=== PATIENT | male | born 1975 | race Caucasian/White ===

== ENCOUNTER 2019-08-04 08:17 | Emergency (ER) | payer BC ==
--- NOTE | 2019-08-04 08:39 | ED ---
Throat Pain/Nasal Congestion - HPI Summary HPI Summary: Patient is a 41 yo male who presents emergency department for ongoing dental pain times one month. Patient notes he has an appointment with [facility] in 2 weeks. Patient concerned with new facial swelling and difficulty swallowing. Pt. states he feels like there is a lump in his throat. No past medical history. Denies fever, vomiting, difficulty opening mouth. Symptoms are mild in severity. No current modifying factors. - History of Current Complaint Chief Complaint: EDDentalPain Time Seen by Provider: 08/04/19 08:38 Hx Obtained From: Patient - Allergies/Home Medications Allergies/Adverse Reactions: Allergies Allergy/AdvReac Type Severity Reaction Status Date / Time No Known Allergies Allergy Verified 08/04/19 08:22 PMH/Surg Hx/FS Hx/Imm Hx Previously Healthy: Yes Endocrine/Hematology History: Denies: Hx Diabetes, Hx Thyroid Disease Cardiovascular History: Denies: Hx Hypertension Respiratory History: Denies: Hx Asthma, Hx Chronic Obstructive Pulmonary Disease (COPD) GI History: Reports: Hx Gastroesophageal Reflux Disease - CONTROLLED WITH RX Denies: Hx Ulcer Sensory History: Denies: Hx Contacts or Glasses, Hx Hearing Aid Opthamlomology History: Denies: Hx Contacts or Glasses - Surgical History Surgery Procedure, Year, and Place: BILATERAL HERNIA [facility] 2013 Hx Anesthesia Reactions: No Infectious Disease History: No Infectious Disease History: Denies: Hx Clostridium Difficile, Hx Hepatitis, Hx Human Immunodeficiency Virus (HIV), Hx of Known/Suspected MRSA, Hx Shingles, Hx Tuberculosis, Hx Known/ Suspected VRE, Hx Known/Suspected VRSA, History Other Infectious Disease, Traveled Outside the [place] in Last 30 Days - Family History Known Family History: Positive: Cardiac Disease, Non-Contributory - Social History Occupation: Employed Full-time Lives: With Family Alcohol Use: Occasionally Substance Use Type: Reports: None Smoking Status (MU): Never Smoked Tobacco Review of Systems - ROS Summary Review of Systems Summary: Omeprazole CAP (NF) [Prilosec CAP* 20 MG] 20 mg PO DAILY 05/26/16 [History Confirmed 08/04/19] Constitutional: Negative Negative: Fever Positive: Dental Pain Gastrointestinal: Negative Neurological/Mental Status: Negative All Other Systems Reviewed And Are Negative: Yes Physical Exam Triage Information Reviewed: Yes Vital Signs On Initial Exam: Initial Vitals Temp Pulse Resp BP Pulse Ox 98.3 F 79 16 165/112 96 08/04/19 08:19 08/04/19 08:19 08/04/19 08:19 08/04/19 08:19 08/04/19 08:19 Vital Signs Reviewed: Yes Appearance: Positive: Well-Appearing - Pt. sitting on bed in NAD. Skin: Positive: Warm, Dry Head/Face: Positive: Normal Head/Face Inspection Eyes: Positive: Normal, EOMI ENT: Positive: TMs normal, Other - Moderate tonilar edema bilaterally. No erythema or excudates. Uvula midline. Dental: Positive: Other - Decay noted to last top molar on left. Pain noted to first top left molar. Gingiva erythematous. No drainable abscess. No facial edema. No swelling under tongue. No trismus or muffled voice. Neck: Positive: Supple, Nontender, No Lymphadenopathy Neurological: Positive: Normal, CN Intact II-III Psychiatric: Positive: Affect/Mood Appropriate Procedures - Sedation Patient Received Moderate/Deep Sedation with Procedure: No Diagnostics - Vital Signs Vital Signs Temp Pulse Resp BP Pulse Ox 08/04/19 08:19 98.3 F 79 16 165/112 96 - Laboratory Lab Statement: Any lab studies that have been ordered have been reviewed, and results considered in the medical decision making process. EENT Course/Dx - Course Course Of Treatment: Pt. with dental pain and dysphagia. Afebrile and well appearing. No signs of ludwigs. Will tx with pnc. To f.u with dentist as scheduled. To f.u with pcp if dysphagia continues. Tylenol or motrin for pain as directed. WIll return to er if sxs change or worsen. - Differential Diagnoses Differential Diagnoses: Dental Abscess, Dental Caries, Gingivitis - Diagnoses Provider Diagnoses: Dysphagia, Dentalgia Discharge ED - Sign-Out/Discharge Documenting (check all that apply): Patient Departure - Discharge Plan Condition: Good Disposition: HOME Prescriptions: Penicillin VK 500 MG TAB(NF) [Penicillin VK 500 mg Tab] 500 mg PO QID #40 tab Patient Education Materials: Toothache (ED), Dysphagia (ED) Referrals: Thanh Mcgovern MD [Primary Care Provider] - Additional Instructions: Follow up with dentist as scheduled Antibiotic as directed Tylenol or Motrin for pain as directed Follow up with PCP if pain/lump in throat continues Return to ER if symptoms change or worsen - Billing Disposition and Condition Condition: GOOD Disposition: Home - Attestation Statements Provider Attestation: I was available for consultation for this patient. I did not evaluate the patient or participate in any medical decision making or disposition decisions unless I am specifically named in the chart as having consulted on the patient. If I have consulted on the patient, please see my own ED note on the patient encounter. Anastasiia Naqvi MD
[2019-08-04 09:01] VITALS: BP 148/106
== END 2019-08-04 08:59 | disposition home or self-care (01) ==
LOC: ED 08:17
DX: K08.89 Other specified disorders of teeth and supporting structures (principal); R13.10 Dysphagia, unspecified; K21.9 Gastro-esophageal reflux disease without esophagitis; Z79.899 Other long term (current) drug therapy
CPT/HCPCS: 99282

== ENCOUNTER 2019-08-06 08:10 | Emergency (ER) | payer BC ==
[2019-08-06] MEDS ORDERED: Clindamycin 600 MG/D5W BAG(*) 600 MG/50 ML BAG IV ONE (08:50)
[2019-08-06 09:08] LABS: ABS Eosinophils 0.1 10^3/ul (0-0.6); ABS Lymphocytes 0.7 10^3/ul (1.0-4.8); ABS Monocytes 0.8 10^3/ul (0-0.8); ABS Neutrophils 4.7 10^3/ul (1.5-7.7); Eosinophil % 1.9 %; Hematocrit 42 % (42-52); Hemoglobin 14.9 g/dL (14.0-18.0); Lymphocyte % 11.6 %; Mean Corpuscular HGB Conc 36 g/dL (31-36); Mean Corpuscular Hemoglobin 32 pg (27-31); Mean Corpuscular Volume 91 fL (80-94); Mean Platelet Volume 7.4 fL (7.4-10.4); Platelet Count 196 10^3/uL (150-450); Red Blood Count 4.61 10^6 /uL (4.18-5.48); Red Cell Distribution Width 13 % (10-15); White Blood Count 6.4 10^3/uL (3.5-10.8)
[2019-08-06 09:19] LABS: Albumin 4.3 g/dL (3.2-5.2); Albumin/Globulin Ratio 1.3 (1-3); BUN/Creatinine Ratio 10.5 (8-20); C Reactive Protein 10.55 mg/L (<8.01); Calcium 8.9 mg/dL (8.6-10.3); EGFR African American 117.4 (>60); EGFR Non-African American 97.1 (>60); Globulin 3.3 g/dL (2-4); Potassium 3.8 mmol/L (3.5-5.0); Total Bilirubin 0.5 mg/dL (0.2-1.0); Total Protein 7.6 g/dL (6.4-8.9)
[2019-08-06] MEDS ORDERED: Ketorolac INJ* 30 MG/ML 1 ML VIAL IV ONE (09:34)
[2019-08-06 10:03] VITALS: BP 156/96
--- NOTE | 2019-08-06 11:06 | ED ---
Throat Pain/Nasal Congestion - HPI Summary HPI Summary: This patient is a 44-year-old otherwise healthy male presenting to the ED with left-sided facial pain. Symptoms have been present times approximately one month. He was seen in the ED 2 days ago. He was placed on penicillin and states since then his symptoms have been worsening. He denies any fevers, sweats, chills. He denies any difficulty talking, swallowing, eating or drinking. Symptoms are mild to moderate in severity. He states ibuprofen over- the-counter has not been improving symptoms. He is also endorsing some left- sided facial swelling which was not present x 2 days. - History of Current Complaint Chief Complaint: EDDentalPain Time Seen by Provider: 08/06/19 08:31 Hx Obtained From: Patient Onset/Duration: Sudden Onset Severity: Moderate Associated Signs And Symptoms: Positive: Negative - Epiglottits Risk Factors Epiglottis Risk Factors: Negative - Allergies/Home Medications Allergies/Adverse Reactions: Allergies Allergy/AdvReac Type Severity Reaction Status Date / Time No Known Allergies Allergy Verified 08/06/19 08:14 Home Medications: Home Medications Omeprazole CAP (NF) [Prilosec CAP* 20 MG] 20 mg PO DAILY 05/26/16 [History Confirmed 08/06/19] Penicillin VK 500 MG TAB(NF) [Penicillin VK 500 mg Tab] 500 mg PO QID #40 tab [Rx Confirmed 08/06/19] Clindamycin Cap(NF) [Clindamycin Cap 300 mg Cap(NF)] 300 mg PO Q6H #20 cap 08/06 [Rx] Ketorolac TAB * [Toradol TAB *] 10 mg PO Q6H #16 tab 08/06/19 [Rx] PMH/Surg Hx/FS Hx/Imm Hx Previously Healthy: Yes Endocrine/Hematology History: Denies: Hx Diabetes, Hx Thyroid Disease Cardiovascular History: Denies: Hx Hypertension Respiratory History: Denies: Hx Asthma, Hx Chronic Obstructive Pulmonary Disease (COPD) GI History: Reports: Hx Gastroesophageal Reflux Disease - CONTROLLED WITH RX Denies: Hx Ulcer Sensory History: Denies: Hx Contacts or Glasses, Hx Hearing Aid Opthamlomology History: Denies: Hx Contacts or Glasses - Surgical History Surgery Procedure, Year, and Place[place] [facility] [place]x Anesthesia Reactions: No - Immunization History Hx Pertussis Vaccination: No Immunizations Up to Date: Yes Infectious Disease History: No Infectious Disease History: Denies: Hx Clostridium Difficile, Hx Hepatitis, Hx Human Immunodeficiency Virus (HIV), Hx of Known/Suspected MRSA, Hx Shingles, Hx Tuberculosis, Hx Known/ Suspected VRE, Hx Known/Suspected VRSA, History Other Infectious Disease, Traveled Outside the [place] in Last 30 Days - Family History Known Family History: Positive: Cardiac Disease, Non-Contributory - Social History Occupation: Employed Full-time Lives: With Family Alcohol Use: Occasionally Hx Substance Use: No Substance Use Type: Reports: None Smoking Status (MU): Never Smoked Tobacco Review of Systems Negative: Fever, Chills, Fatigue, Skin Diaphoresis Positive: Dental Pain. Negative: Sore Throat Negative: Chest Pain Negative: Shortness Of Breath, Cough Genitourinary: Negative Positive: no symptoms reported, see HPI Negative: Arthralgia, Myalgia Skin: Negative All Other Systems Reviewed And Are Negative: Yes Physical Exam Triage Information Reviewed: Yes Vital Signs On Initial Exam: Initial Vitals Temp Pulse Resp BP Pulse Ox 97.9 F 70 16 174/94 97 08/06/19 08:12 08/06/19 08:12 08/06/19 08:12 08/06/19 08:12 08/06/19 08:12 Vital Signs Reviewed: Yes Appearance: Positive: Well-Appearing, No Pain Distress, Well-Nourished Skin: Positive: Warm, Skin Color Reflects Adequate Perfusion Head/Face: Positive: Normal Head/Face Inspection Eyes: Positive: EOMI, PETER, Conjunctiva Clear Neck: Positive: Supple, Nontender, No Lymphadenopathy Respiratory/Lung Sounds: Positive: Clear to Auscultation, Breath Sounds Present Cardiovascular: Positive: RRR, Pulses are Symmetrical in both Upper and Lower Extremities Musculoskeletal: Positive: Normal, Strength/ROM Intact Neurological: Positive: Normal, Sensory/Motor Intact, Speech Normal Psychiatric: Positive: Normal, Affect/Mood Appropriate Procedures - Sedation Patient Received Moderate/Deep Sedation with Procedure: No Diagnostics - Vital Signs Vital Signs Temp Pulse Resp BP Pulse Ox 08/06/19 10:01 98.2 F 67 16 156/96 96 08/06/19 09:40 65 163/98 96 08/06/19 09:10 61 159/82 96 08/06/19 09:00 64 94 08/06/19 08:41 74 97 08/06/19 08:40 74 163/103 97 08/06/19 08:12 97.9 F 70 16 174/94 97 - Laboratory Lab Results: Lab Results 08/06/19 08/06/19 Range/Units 08:53 08:53 WBC 6.4 (3.5-10.8) 10^3/uL RBC 4.61 (4.18-5.48) 10^6 /uL Hgb 14.9 (14.0-18.0) g/dL Hct 42 (42-52) % MCV 91 (80-94) fL MCH 32 H (27-31) pg MCHC 36 (31-36) g/dL RDW 13 (10-15) % Plt Count 196 (150-450) 10^3/uL MPV 7.4 (7.4-10.4) fL Neut % (Auto) 73.8 % Lymph % (Auto) 11.6 % [place] % (Auto) 12.0 % Eos % (Auto) 1.9 % Baso % (Auto) 0.7 % Absolute Neuts (auto) 4.7 (1.5-7.7) 10^3/ul Absolute Lymphs (auto) 0.7 L (1.0-4.8) 10^3/ul Absolute Monos (auto) 0.8 (0-0.8) 10^3/ul Absolute Eos (auto) 0.1 (0-0.6) 10^3/ul Absolute Basos (auto) 0.0 (0-0.2) 10^3/ul Absolute Nucleated RBC 0.0 10^3/ul Nucleated RBC % 0.0 Sodium 137 (135-145) mmol/L Potassium 3.8 (3.5-5.0) mmol/L Chloride 104 (101-111) mmol/L Carbon Dioxide 24 (22-32) mmol/L Anion Gap 9 (2-11) mmol/L BUN 9 (6-24) mg/dL Creatinine 0.86 (0.67-1.17) mg/dL Est GFR ( Amer) 117.4 (>60) Est GFR (Non-Af Amer) 97.1 (>60) BUN/Creatinine Ratio 10.5 (8-20) Glucose 113 H (70-100) mg/dL Calcium 8.9 (8.6-10.3) mg/dL Total Bilirubin 0.50 (0.2-1.0) mg/dL AST 17 (13-39) U/L ALT 20 (7-52) U/L Alkaline Phosphatase 81 (34-104) U/L C-Reactive Protein 10.55 H (<8.01) mg/L Total Protein 7.6 (6.4-8.9) g/dL Albumin 4.3 (3.2-5.2) g/dL Globulin 3.3 (2-4) g/dL Albumin/Globulin Ratio 1.3 (1-3) Result Diagrams: 08/06/19 08:53 08/06/19 08:53 Lab Statement: Any lab studies that have been ordered have been reviewed, and results considered in the medical decision making process. EENT Course/Dx - Course Course Of Treatment: This patient is evaluated for left-sided facial pain from a possible dental infection. Patient was seen in the ED 2 days ago with pain to the upper tooth, over tooth #13. No erythema or swelling to this area. He states despite being on penicillin 2 days and taking ibuprofen, his symptoms have not improved. He states he is feeling some slight swelling to the area. Physical examination there is no swelling around the eye to suggest a preseptal cellulitis. Patient is afebrile. No erythema to the skin. No trismus noted. No pharyngeal erythema or evidence of abscess. No erythema around the tooth of concern. On palpation, patient does have discomfort. It is unlikely he is feeling outpatient antibiotics and there is no evidence of worsening symptoms. Pt will be switched to Clindamycin, given 1 dose IV in the ED and given toradol. Pt feeling somewhat improved and will be dc'd home in good condition. - Differential Diagnoses Differential Diagnoses: Other - dental infection, swelling - Diagnoses Provider Diagnoses: Pain, dental Discharge ED - Sign-Out/Discharge Documenting (check all that apply): Patient Departure - Discharge Plan Condition: Stable Disposition: HOME Prescriptions: Clindamycin Cap(NF) [Clindamycin Cap 300 mg Cap(NF)] 300 mg PO Q6H #20 cap Ketorolac TAB * [Toradol TAB *] 10 mg PO Q6H #16 tab Patient Education Materials: Toothache (ED) Referrals: Thanh Mcgovern MD [Primary Care Provider] - Additional Instructions: No evidence of worsening infection Will switch your antibiotic to Clindamycin please take probiotics while taking this medication to avoid secondary infections Toradol four times daily x 4 days - DO NOT TAKE NSAIDS WHILE TAKING THIS MEDICATION You can take Tylenol 650mg four times daily in addition to taking the Toradol The pain may continue until you have the tooth pulled - Billing Disposition and Condition Condition: STABLE Disposition: Home
== END 2019-08-06 10:01 | disposition home or self-care (01) ==
LOC: ED 08:10
DX: K08.89 Other specified disorders of teeth and supporting structures (principal); K21.9 Gastro-esophageal reflux disease without esophagitis; Z79.899 Other long term (current) drug therapy
CPT/HCPCS: 36415; 80053; 85025; 86140; 96365; 96375; 99283; J1885

== ENCOUNTER 2019-08-07 09:28 | Emergency (ER) | payer BC ==
[2019-08-07] MEDS ORDERED: Ketorolac INJ* 30 MG/ML 1 ML VIAL IV ONE (10:15)
[2019-08-07] MEDS ORDERED: diPHENhydraMINE IV* 50 MG/ML 1 ml VIAL (BENADRYL) IV ONE (10:15)
[2019-08-07] MEDS ORDERED: NS 0.9% 1000 ML** 2,000 ML IV ONE (10:15)
[2019-08-07] MEDS ORDERED: Metoclopramide IV* 5 MG/ML 2 ML VIAL IV ONE (10:15)
[2019-08-07 10:33] LABS: ABS Basophils 0.1 10^3/ul (0-0.2); ABS Lymphocytes 0.6 10^3/ul (1.0-4.8); ABS Monocytes 0.7 10^3/ul (0-0.8); ABS Neutrophils 6.1 10^3/ul (1.5-7.7); Eosinophil % 0.4 %; Hematocrit 44 % (42-52); Hemoglobin 15.4 g/dL (14.0-18.0); Lymphocyte % 7.8 %; Mean Corpuscular HGB Conc 35 g/dL (31-36); Mean Corpuscular Hemoglobin 32 pg (27-31); Mean Corpuscular Volume 92 fL (80-94); Mean Platelet Volume 7.6 fL (7.4-10.4); Platelet Count 196 10^3/uL (150-450); Red Blood Count 4.82 10^6 /uL (4.18-5.48); Red Cell Distribution Width 13 % (10-15); White Blood Count 7.5 10^3/uL (3.5-10.8)
[2019-08-07 10:50] LABS: Albumin 4.3 g/dL (3.2-5.2); Albumin/Globulin Ratio 1.3 (1-3); BUN/Creatinine Ratio 13.3 (8-20); EGFR Non-African American 83.5 (>60); Globulin 3.3 g/dL (2-4); Total Bilirubin 0.6 mg/dL (0.2-1.0); Total Protein 7.6 g/dL (6.4-8.9)
[2019-08-07 11:46] LABS: Erythrocyte Sed Rate 26 mm/Hr (0-14)
--- NOTE | 2019-08-07 12:25 | ED ---
Throat Pain/Nasal Congestion - HPI Summary HPI Summary: This patient is a 44-year-old male who presents to the ED for the third time in 4 days. Patient states he was first placed on penicillin for a possible dental infection as he was having pain to the upper left tooth and cheek. He then returned yesterday as he was having continuing pain and now felt the area was swollen and radiating up just inferior to the eye. He believes after 2 days, since symptoms had been worsening, the antibiotic was not improving his symptoms. He was switched to clindamycin, labs were obtained yesterday and were WNL. He was given Toradol and discharged with dental infection. Overnight he started to vomit and had worse ORELLANA of life. Pt requesting CT scan d /t sxs. Vomiting x 3 overnight, worse after taking clindamycin. No diarrhea. No visual changes. States after vomiting he had some petechial hemorrhages to the L side of the face. - History of Current Complaint Chief Complaint: EDHeadache Time Seen by Provider: 08/07/19 09:52 Hx Obtained From: Patient Onset/Duration: Sudden Onset Associated Signs And Symptoms: Negative: Dysphagia, FB Sensation, Drooling, Wheezing - Epiglottits Risk Factors Epiglottis Risk Factors: Negative - Allergies/Home Medications Allergies/Adverse Reactions: Allergies Allergy/AdvReac Type Severity Reaction Status Date / Time No Known Allergies Allergy Verified 08/06/19 08:14 Home Medications: Home Medications Omeprazole CAP (NF) [Prilosec CAP* 20 MG] 20 mg PO DAILY 05/26/16 [History Confirmed 08/06/19] Penicillin VK 500 MG TAB(NF) [Penicillin VK 500 mg Tab] 500 mg PO QID #40 tab [Rx Confirmed 08/06/19] Clindamycin Cap(NF) [Clindamycin Cap 300 mg Cap(NF)] 300 mg PO Q6H #20 cap 08/06 [Rx] Ketorolac TAB * [Toradol TAB *] 10 mg PO Q6H #16 tab 08/06/19 [Rx] Amoxicillin/Clavulanate TAB* [Augmentin TAB 875*] 875 mg PO BID #10 tab [Rx] Ondansetron ODT TAB* [Zofran 4 MG Odt TAB*] 4 mg PO Q6H PRN #20 tab.odt MDD 4 [Rx] PMH/Surg Hx/FS Hx/Imm Hx Previously Healthy: Yes Endocrine/Hematology History: Denies: Hx Diabetes, Hx Thyroid Disease Cardiovascular History: Denies: Hx Hypertension Respiratory History: Denies: Hx Asthma, Hx Chronic Obstructive Pulmonary Disease (COPD) GI History: Reports: Hx Gastroesophageal Reflux Disease - CONTROLLED WITH RX Denies: Hx Ulcer Sensory History: Denies: Hx Contacts or Glasses, Hx Hearing Aid Opthamlomology History: Denies: Hx Contacts or Glasses - Surgical History Surgery Procedure, Year, and Place: BILATERAL HERNIA [facility] 2013 Hx Anesthesia Reactions: No - Immunization History Hx Pertussis Vaccination: No Immunizations Up to Date: Yes Infectious Disease History: No Infectious Disease History: Denies: Hx Clostridium Difficile, Hx Hepatitis, Hx Human Immunodeficiency Virus (HIV), Hx of Known/Suspected MRSA, Hx Shingles, Hx Tuberculosis, Hx Known/ Suspected VRE, Hx Known/Suspected VRSA, History Other Infectious Disease, Traveled Outside the [place] in Last 30 Days - Family History Known Family History: Positive: Cardiac Disease, Non-Contributory - Social History Occupation: Unemployed Lives: Alone Alcohol Use: Occasionally Hx Substance Use: No Substance Use Type: Reports: None Smoking Status (MU): Never Smoked Tobacco Review of Systems Negative: Fever, Chills, Fatigue, Skin Diaphoresis ENT: Other - sinus tenderness Positive: Dental Pain, Nasal Discharge. Negative: Sore Throat Negative: Palpitations, Chest Pain Negative: Shortness Of Breath, Cough Negative: Rash, Bruising Neurological/Mental Status: Negative Positive: Headache All Other Systems Reviewed And Are Negative: Yes Physical Exam Triage Information Reviewed: Yes Vital Signs On Initial Exam: Initial Vitals Temp Pulse Resp BP Pulse Ox 98.3 F 69 16 179/132 99 08/07/19 09:44 08/07/19 09:44 08/07/19 09:44 08/07/19 09:44 08/07/19 09:44 Vital Signs Reviewed: Yes Appearance: Positive: Well-Appearing, Well-Nourished Skin: Positive: Warm, Skin Color Reflects Adequate Perfusion Head/Face: Positive: Normal Head/Face Inspection Eyes: Positive: EOMI, Conjunctiva Clear ENT: Positive: Nasal drainage, Sinus tenderness. Negative: Pharyngeal erythema , Nasal congestion, Tonsillar swelling, Tonsillar exudate Neck: Positive: Supple, No Lymphadenopathy Respiratory/Lung Sounds: Positive: Clear to Auscultation, Breath Sounds Present Cardiovascular: Positive: RRR, Pulses are Symmetrical in both Upper and Lower Extremities Neurological: Positive: Sensory/Motor Intact, Alert, Oriented to Person Place, Time, Normal Gait, Speech Normal Psychiatric: Positive: Normal, Affect/Mood Appropriate Procedures - Sedation Patient Received Moderate/Deep Sedation with Procedure: No Diagnostics - Vital Signs Vital Signs Temp Pulse Resp BP Pulse Ox 08/07/19 11:38 74 159/93 97 08/07/19 11:08 63 167/100 96 08/07/19 11:05 71 95 08/07/19 10:38 67 99 08/07/19 10:37 67 168/93 99 08/07/19 09:44 98.3 F 69 16 179/132 99 - Laboratory Lab Results: Lab Results 08/07/19 08/07/19 08/07/19 Range/Units 10:26 10:26 10:26 WBC 7.5 (3.5-10.8) 10^3/uL RBC 4.82 (4.18-5.48) 10^6 /uL Hgb 15.4 (14.0-18.0) g/dL Hct 44 (42-52) % MCV 92 (80-94) fL MCH 32 H (27-31) pg MCHC 35 (31-36) g/dL RDW 13 (10-15) % Plt Count 196 (150-450) 10^3/uL MPV 7.6 (7.4-10.4) fL Neut % (Auto) 81.3 % Lymph % (Auto) 7.8 % [place] % (Auto) 9.8 % Eos % (Auto) 0.4 % Baso % (Auto) 0.7 % Absolute Neuts (auto) 6.1 (1.5-7.7) 10^3/ul Absolute Lymphs (auto) 0.6 L (1.0-4.8) 10^3/ul Absolute Monos (auto) 0.7 (0-0.8) 10^3/ul Absolute Eos (auto) 0.0 (0-0.6) 10^3/ul Absolute Basos (auto) 0.1 (0-0.2) 10^3/ul Absolute Nucleated RBC 0.0 10^3/ul Nucleated RBC % 0.0 ESR 26 H (0-14) mm/Hr Sodium 135 (135-145) mmol/L Potassium 4.0 (3.5-5.0) mmol/L Chloride 102 (101-111) mmol/L Carbon Dioxide 24 (22-32) mmol/L Anion Gap 9 (2-11) mmol/L BUN 13 (6-24) mg/dL Creatinine 0.98 (0.67-1.17) mg/dL Est GFR ( Amer) 101.0 (>60) Est GFR (Non-Af Amer) 83.5 (>60) BUN/Creatinine Ratio 13.3 (8-20) Glucose 128 H (70-100) mg/dL Lactic Acid 1.5 (0.5-2.0) mmol/L Calcium 9.0 (8.6-10.3) mg/dL Total Bilirubin 0.60 (0.2-1.0) mg/dL AST 17 (13-39) U/L ALT 19 (7-52) U/L Alkaline Phosphatase 77 (34-104) U/L Total Protein 7.6 (6.4-8.9) g/dL Albumin 4.3 (3.2-5.2) g/dL Globulin 3.3 (2-4) g/dL Albumin/Globulin Ratio 1.3 (1-3) Result Diagrams: 08/07/19 10:26 08/07/19 10:26 Lab Statement: Any lab studies that have been ordered have been reviewed, and results considered in the medical decision making process. EENT Course/Dx - Course Course Of Treatment: During his course treatment, the patient is evaluated for the third time left upper dental pain. He states this is more over his maxillary sinuses and extending upward into just above the eyes. Headache is worst of life. He is also having associated nausea and vomiting since last night. Symptoms began after taking the clindamycin for a dental infection. Labs are WNL. CT maxillofacial and CT brain WNL. Patient was given Toradol, Benadryl and Reglan. Pt sxs improved. He will DC clindamycin, take augmentin instead and is given zofran. - Differential Diagnoses Differential Diagnoses: Other - ORELLANA, dental pain, viral syndrome - Diagnoses Provider Diagnoses: Medication reaction, Sinusitis Discharge ED - Sign-Out/Discharge Documenting (check all that apply): Patient Departure - Discharge Plan Condition: Stable Disposition: HOME Prescriptions: Amoxicillin/Clavulanate TAB* [Augmentin TAB 875*] 875 mg PO BID #10 tab Ondansetron ODT TAB* [Zofran 4 MG Odt TAB*] 4 mg PO Q6H PRN #20 tab.odt MDD 4 PRN Reason: Nausea Patient Education Materials: Sinusitis (ED) Referrals: Thanh Mcgovern MD [Primary Care Provider] - Additional Instructions: Augmentin twice daily x 5 days Zofran as needed for nausea Benadryl, toradol and zofran for headache and nausea Drink plenty of fluids and rest - Billing Disposition and Condition Condition: STABLE Disposition: Home - Attestation Statements Provider Attestation: I was available for consult. This patient was seen by the SHERIE. The patient was not presented to, seen by, or examined by me. Colt Soto MD
[2019-08-07 12:30] VITALS: BP 163/96
== END 2019-08-07 12:30 | disposition home or self-care (01) ==
LOC: ED 09:28
DX: T50.905A Adverse effect of unspecified drugs, medicaments and biological substances, initial encounter (principal); K08.89 Other specified disorders of teeth and supporting structures; J32.9 Chronic sinusitis, unspecified; K21.9 Gastro-esophageal reflux disease without esophagitis; Z79.899 Other long term (current) drug therapy
CPT/HCPCS: 36415; 70450; 70486; 80053; 83605; 85025; 85652; 96374; 96375; 99283; J1200; J1885; J2765

== ENCOUNTER 2019-08-09 03:49 | Inpatient (IN) | payer BC ==
[2019-08-09] MEDS ORDERED: NS 0.9% 1000 ML** 2,000 ML IV ONE (04:11)
[2019-08-09] MEDS ORDERED: oxyCODONE/Acetamin 5/325 MG* TAB PO ONE (04:24)
[2019-08-09] MEDS ORDERED: Ondansetron INJ* 2 MG/ML VIAL IV ONE (04:26)
[2019-08-09] MEDS ORDERED: Tetracaine 0.5% OPTH.SOL 4 ML* 1 DROP BTL LEFT EYE ONE (04:30)
--- NOTE | 2019-08-09 04:33 | ED ---
Skin Complaint - HPI Summary HPI Summary: Patient is a 44 y/o M presenting to [facility] with rash to the left side of his face and involving his eye. The patient has been seen three times in the past week for persistent dental and facial pain. He had been prescribed antibiotics and had maxillofacial and brain CTs done that were negative. The patient was noted to have "peticheal hemorrhages to L side of forehead" on the triage note from the patient's most recent visit. Rash has significantly worsened since then. Patient notes difficulty opening his left eye and photophobia. N/V/D are reported, dental/facial pain is still present. He states that he has also been experiencing an elevated HR. Patient is on omeprazole for GERD. No other PMHx noted. Home medications and allergies are reviewed. Home Medications Medication Instructions Recorded Confirmed Type Omeprazole CAP (NF) [Prilosec CAP* 20 mg PO DAILY 05/26/16 08/09/19 History 20 MG] Ketorolac TAB * [Toradol TAB *] 10 mg PO Q6H #16 tab 08/06/19 08/09/19 Rx Amoxicillin/Clavulanate TAB* 875 mg PO BID #10 tab 08/07/19 08/09/19 Rx [Augmentin TAB 875*] Ondansetron ODT TAB* [Zofran 4 MG 4 mg PO Q6H PRN #20 tab.odt MDD 4 08/07/19 Rx Odt TAB*] - History of Current Complaint Stated Complaint: RAPID HR PER PT Hx Obtained From: Patient Onset/Duration: Started Days Ago, Still Present Skin Exposure Onset/Duration: Days Ago Timing: Constant Current Severity: Severe Pain Intensity: 10 Pain Scale Used: 0-10 Numeric Skin Location: Face Character: Pain, Redness, Painful Associated Signs & Symptoms: Nausea, Vomiting - Allergy/Home Medications Allergies/Adverse Reactions: Allergies Allergy/AdvReac Type Severity Reaction Status Date / Time No Known Allergies Allergy Verified 08/09/19 03:53 Home Medications: Home Medications Omeprazole CAP (NF) [Prilosec CAP* 20 MG] 20 mg PO DAILY 05/26/16 [History Confirmed 08/09/19] Ketorolac TAB * [Toradol TAB *] 10 mg PO Q6H #16 tab 08/06/19 [Rx Confirmed ] Amoxicillin/Clavulanate TAB* [Augmentin TAB 875*] 875 mg PO BID #10 tab [Rx Confirmed 08/09/19] Ondansetron ODT TAB* [Zofran 4 MG Odt TAB*] 4 mg PO Q6H PRN #20 tab.odt MDD 4 [Rx Confirmed 08/09/19] PMH/Surg Hx/FS Hx/Imm Hx Endocrine/Hematology History: Denies: Hx Diabetes, Hx Thyroid Disease Cardiovascular History: Denies: Hx Hypertension Respiratory History: Denies: Hx Asthma, Hx Chronic Obstructive Pulmonary Disease (COPD) GI History: Reports: Hx Gastroesophageal Reflux Disease - CONTROLLED WITH RX Denies: Hx Ulcer Sensory History: Denies: Hx Contacts or Glasses, Hx Hearing Aid Opthamlomology History: Denies: Hx Contacts or Glasses - Surgical History Surgery Procedure, Year, and Place: BILATERAL HERNIA [facility] 2013 Hx Anesthesia Reactions: No Infectious Disease History: No Infectious Disease History: Denies: Hx Clostridium Difficile, Hx Hepatitis, Hx Human Immunodeficiency Virus (HIV), Hx of Known/Suspected MRSA, Hx Shingles, Hx Tuberculosis, Hx Known/ Suspected VRE, Hx Known/Suspected VRSA, History Other Infectious Disease, Traveled Outside the [place] in Last 30 Days - Family History Known Family History: Positive: Cardiac Disease - Social History Alcohol Use: Occasionally Hx Substance Use: No Substance Use Type: Reports: None Smoking Status (MU): Never Smoked Tobacco Review of Systems Positive: Photophobia, Erythema, Other - patient keeps eye closed Positive: Dental Pain Positive: Other - elevated HR Positive: Vomiting, Diarrhea, Nausea Positive: Myalgia - facial pain Positive: Rash All Other Systems Reviewed And Are Negative: Yes Physical Exam - Summary Physical Exam Summary: Appearance: Well-appearing, Well-nourished, lying in bed comfortably Skin: Warm, dry, there is a dramatic herpes-zoster like rash involving the left forehead, cheek, nose, and eyelid Eyes: sclera anicteric, no conjunctival pallor; The left eye has conjunctival inflammation. The patient is apprehensive to light and does not want to open his left eye. HENT: mucous membranes moist, pharynx appears normal Neck: Supple, nontender Respiratory: Clear to auscultation, no signs of respiratory distress Cardiovascular: Normal S1, S2. No murmurs. Normal distal pulses in tibial and radial bilaterally. Abdomen: Soft, nontender, normal active bowel sounds present Musculoskeletal: Normal, Strength/ROM Intact Neurological: A&Ox3, awake and alert, mentation is normal, speech is fluent and appropriate Psychiatric: affect is normal, does not appear anxious or depressed Triage Information Reviewed: Yes Vital Signs On Initial Exam: Initial Vitals Temp Pulse Resp BP Pulse Ox 98.7 F 78 16 175/106 99 08/09/19 03:50 08/09/19 03:50 08/09/19 03:50 08/09/19 03:50 08/09/19 03:50 Vital Signs Reviewed: Yes Procedures - Sedation Patient Received Moderate/Deep Sedation with Procedure: No Diagnostics - Vital Signs Vital Signs Temp Pulse Resp BP Pulse Ox 08/09/19 03:50 98.7 F 78 16 175/106 99 - Laboratory Result Diagrams: 08/09/19 04:20 08/09/19 04:20 Lab Statement: Any lab studies that have been ordered have been reviewed, and results considered in the medical decision making process. Course/Dx - Course Course Of Treatment: Patient is a 44 y/o M presenting to [facility] with rash to the left side of his face and involving his eye. The patient has been seen three times in the past week for persistent dental and facial pain. He had been prescribed antibiotics and had maxillofacial and brain CTs done that were negative. The patient was noted to have "peticheal hemorrhages to L side of forehead" on the triage note from the patient's most recent visit. Rash has significantly worsened since then. Patient notes difficulty opening his left eye and photophobia. N/V/D are reported, dental/facial pain is still present. He states that he has also been experiencing an elevated HR. Patient is on omeprazole for GERD. No other PMHx noted. On physical exam, there is a dramatic herpes-zoster like rash involving the left forehead, cheek, nose, and eyelid. The left eye has conjunctival inflammation. The patient is apprehensive to light and does not want to open his left eye. Bloodwork was obtained and within normal limits with exception of glucose 117, chloride 96, sodium 130, absolute monos 1.1, absolute lymphs 0.9, MCH 32. Tetracaine droplets were applied to the left eye. Patient received fluids, Zofran 8 mg IV Perocect, 2 tabs. He was also started on Acyclovir. Patient's case was discussed with Dr. De La Torre, Dr. De La Torre accepts for admission. - Diagnoses Provider Diagnoses: Herpes zoster, Herpes zoster ophthalmicus of left eye - Physician Notifications Discussed Care Of Patient With: Ike De La Torre Time Discussed With Above Provider: 04:18 Instructed by Provider To: Other - Patient's case was discussed with Dr. De La Torre , Dr. De La Torre accepts for admission. Discharge ED - Sign-Out/Discharge Documenting (check all that apply): Patient Departure - admit All imaging exams completed and their final reports reviewed: No Studies - Discharge Plan Condition: Stable Disposition: ADMITTED TO [facility] - Attestation Statements Document Initiated by Scribe: Yes Documenting Scribe: ABDOULAYE DENISE Provider For Whom Scribe is Documenting (Include Credential): NATALIE ARNOLD MD Scribe Attestation: ABDOULAYE Hawkins, scribed for NATALIE ARNOLD MD on 08/09/19 at 0604.
[2019-08-09 04:37] LABS: Hematocrit 42 % (42-52); Hemoglobin 14.8 g/dL (14.0-18.0); Mean Corpuscular HGB Conc 35 g/dL (31-36); Mean Corpuscular Hemoglobin 32 pg (27-31); Mean Corpuscular Volume 91 fL (80-94); Mean Platelet Volume 7.6 fL (7.4-10.4); Platelet Count 183 10^3/uL (150-450); Red Blood Count 4.61 10^6 /uL (4.18-5.48); Red Cell Distribution Width 13 % (10-15); White Blood Count 8.6 10^3/uL (3.5-10.8)
[2019-08-09 04:48] LABS: Albumin 4.1 g/dL (3.2-5.2); Albumin/Globulin Ratio 1.2 (1-3); BUN/Creatinine Ratio 14.7 (8-20); EGFR African American 96.5 (>60); EGFR Non-African American 79.7 (>60); Globulin 3.3 g/dL (2-4); Potassium 3.7 mmol/L (3.5-5.0); Total Bilirubin 0.7 mg/dL (0.2-1.0); Total Protein 7.4 g/dL (6.4-8.9)
[2019-08-09 04:52] LABS: ABS Basophils 0.1 10^3/ul (0-0.2); ABS Lymphocytes 0.9 10^3/ul (1.0-4.8); ABS Monocytes 1.1 10^3/ul (0-0.8); ABS Neutrophils 6.5 10^3/ul (1.5-7.7); Eosinophil % 0.2 %; Lymphocyte % 10.3 %; Nucleated Red Blood Cells % 0.1
[2019-08-09] MEDS ORDERED: Acyclovir IV(*) 500 MG/10 ML 100 ML VIAL (500 MG) IVPB SCH ×2 (05:00→06:00)
[2019-08-09] MEDS: ACYCLOVIR IVPB SCH ×2 (05:10→12:45)
[2019-08-09] MEDS: NS 0.9% IVPB SCH ×2 (05:10→12:45)
[2019-08-09] MEDS ORDERED: traMADol TAB* 50 MG PO PRN (05:18)
[2019-08-09] MEDS ORDERED: Acetaminophen TAB* 325 MG PO PRN (05:18)
[2019-08-09 05:23] LABS: HIV 4th Generation Nonreactive (Nonreactive)
[2019-08-09] MEDS: ceFAZolin VIAL(*) 2 GM in NS 0.9% 100 ML* 100 ML IVPB SCH ×3 (08:11→22:18)
[2019-08-09] MEDS: Pantoprazole TAB * 40 MG TAB PO SCH (08:11)
--- NOTE | 2019-08-09 09:12 | HP ---
CC: Dr. Mcgovern * HISTORY AND PHYSICAL: DATE OF ADMISSION: 08/09/19 PRIMARY CARE PROVIDER: Dr. Mcgovern. ATTENDING PHYSICIAN WHILE IN THE HOSPITAL: Dr. De La Torre * (report being dictated by Luis Alfredo Arreguin NP). CHIEF COMPLAINT: 1. Rash. 2. Pain near left eye. HISTORY OF PRESENT ILLNESS: Mr. Mcmahon is a 44-year-old male patient who has been to the ER now, this is his fourth visit in about a week's time. He initially presented on 08/04/19 with complaints of having pain over the left mandible area just underneath the eye. It was thought that this could be possibly related to a dental process. He was noted to have poor dentition. He was evaluated in the ER. The patient was discharged with penicillin. He said despite this though he continued to have a significant amount of pain, sharp burning pain that would start again in the left mandible just below the left eye and radiate down the jaw and into his left ear. He says that the pain was becoming unbearable, so 2 days after that initial visit on 08/04/19, he came back on 08/06/19, again was evaluated. Despite having the penicillin, he was continuing to have left-sided facial swelling, which was not present 2 days ago. He was noted to have discomfort along the left eye. He was switched to clindamycin at that point. He came back again on 08/07/19, about 2 days after being put on clindamycin with complaints of vomiting, GI upset, not feeling well , and he was noted to have petechiae around the left eye thought to be secondary to the vomiting; however, he was continuing to have pain and swollen area around the left eye and they noted that the symptoms have been worsening and antibiotic had not been helping. The patient had CAT scans done at this visit. He was switched over to Augmentin. It was felt that he may have sinusitis. CTs were negative. He was given Toradol, Benadryl, and Reglan. His symptoms improved. He came back again tonight because he started developing a rash that started with blisters near the left eye. He noticed this happening Friday night and Friday that was getting worse and the pain was getting severe. He was vomiting. He was unable to keep much food down and was unable to sleep since because of all the pain. He came into the ER and actually nursing staff, who had seen him on previous visits, reported that he did not have this rash previously. He states that the rash started over the last 3 days. It started as blisters that developed into redness surrounding basically the left side of the forehead, around the left eye, and then the rash into the scalp with blistering noted. He denies any fevers. He does admit being nauseous and having a hard time keeping fluids down. He admits to having a burning, sharp, stabbing pain mostly on the left side of his face in the dermatomal distribution. He denies having any loss of vision. He says that it is hard to open his eye because of swelling and he does have pain with movement of the eye. There was concern given the fact that this is the fourth time he has come to the ER in less than a week, the fact that he is having nausea and vomiting, and given the fact that there is concern now for possible shingles, we were asked to evaluate for admission. He does admit to having a history of chickenpox as a child. PAST MEDICAL HISTORY: Significant for GERD. PAST SURGICAL HISTORY: Significant for hernia repair. HOME MEDICATIONS: He is taking currently now: 1. Zofran 4 mg every 6 hours as needed. 2. Prilosec 20 mg a day. 3. Toradol 10 mg every 6 hours. 4. Augmentin 875 p.o. b.i.d. The majority of those meds were prescribed at his last ER visit. ALLERGIES TO MEDICATIONS: Include no known drug allergies. FAMILY HISTORY: His mother had a history of stroke. His father is healthy. SOCIAL HISTORY: He does not smoke. He occasionally drinks alcohol, occasionally smokes marijuana. Surrogate decision maker is his . REVIEW OF SYSTEMS: There is no documented fever. He does admit to having chills. He denies having any significant weight change. There is no ear discharge. He denied having any rhinorrhea. No sore throat, no thyroid enlargement. Denies having any chest pain. There was no orthopnea. No nocturnal dyspnea. No abdominal pain. There was nausea. There was vomiting. No dysuria, no frequency, no seizure, no loss of consciousness, no pruritus, and no skin ulcerations. Review of 14 systems completed, all others were negative. PHYSICAL EXAMINATION GENERAL: At this time, Mr. Mcmahon is a 44-year-old male patient. He is sitting in the ED stretcher. He does not appear to be in any acute distress. He appears to be well nourished and well developed. VITAL SIGNS: Blood pressure 157/92, pulse 68, respirations 15, O2 saturation 97 %, temperature 98.7. HEENT: Head: Atraumatic. Eyes: His EOMs are intact. He does have pain with medial and lateral movement of the left eye. Pupils were equal and reactive. His conjunctiva was erythematic in the left eye. He did have some conjunctival hemorrhaging noted. The iris did not appear to be inflamed at this point. Visual acuity was intact as well. He does have some swelling noted over the lower lid and upper lid of his left eye and erythema surrounding that left eye. Tongue was midline. Throat: Oral mucosa appears to be moist. No oropharyngeal erythema. LUNGS: Clear to auscultation bilaterally. No wheezes, rales, or rhonchi. HEART: Sounds S1, S2. He had a regular rate and rhythm. No murmurs, rubs, or gallops. ABDOMEN: Soft, it was flat, nontender. Bowel sounds were present. EXTREMITIES: Pulses were 2+ throughout. He is moving all 4 extremities with 5/ 5 strength. NEUROLOGICAL: He is awake. He is alert. He is oriented x3. Speech clear. Tongue midline. Priming Powder Premix Blender were equal. Strength was preserved. SKIN: Again, he has an area of erythema surrounding the left eye and left forehead. He does have some blistering noted, particularly in the forehead. He does have some pustules noted to his upper shoulders bilaterally. The erythema surrounding the left eye. Again, he does have some versicles noted and he does state that prior to this, he did have blisters, but he does have a significant amount of erythema most of the left side of his face and it starts just below the left eye going up towards the forehead and then radiating back along his scalp not crossing over to the midline and it is painful. DIAGNOSTIC STUDIES/LAB DATA: Labs today reveal WBC 8.6, RBC 4.61, hemoglobin 14.8, hematocrit of 42, platelet count of 183. Sodium 130, potassium 3.7, chloride 96, bicarb 26, BUN 15, creatinine 1.02, glucose 117, calcium 9.0. Total bili 0.7, AST 16, ALT 18, alk phos 74. Albumin 4.1. ASSESSMENT AND PLAN: Mr. Mcmahon is a 44-year-old male patient coming into the ED today, this is the fourth time, with complaints of pain most notably to the left side of his face, now developing a rash. We are asked to evaluate for admission. He will be admitted under observation status for: 1. Shingles. I suspect that he does have shingles surrounding the left eye. His visual acuity is intact. I did touch base with Ophthalmology. Given the fact that he is in significant amount of pain and the fact that he has been nauseous and having a hard time keeping things down, I am going to admit him for IV therapy. I am hopeful that we can transition him quickly to p.o. and then have him continue his course as an outpatient. I will not start steroids just at this point. I would just do again IV acyclovir, Tylenol, and tramadol for pain. We will have Ophthalmology evaluate. I did place him on Keflex as I do have some concern that it could be a secondary bacterial infection. Just to be cautious, I would like to treat this with cefazolin 2 g IV every 8 hours for the time being, and we will continue to follow, and I will wait for the recommendations from Ophthalmology. I did discuss with them today. They will see him today. 2. Hyponatremia, etiology unclear. I will repeat this at noon today. He did receive IV fluids. If it is not improving, we could consider further workup in terms of FENa and plus or minus fluid restriction. 3. DVT prophylaxis. I have ordered SCDs. 4. Code status. Full code. 5. GERD. Continue PPI therapy. TIME SPENT: Time spent on the admission was 60 minutes, greater than half the time was spent [id number] with the patient obtaining my history of physical; the other half time was spent going over the plan of care with the patient and implementing plan of care. I did discuss the plan of care with my attending, Dr. De La Torre. LUIS ALFREDO ARREGUIN NP [id number]/[facility] #: [id number] [facility] HOSPITALRuma
[2019-08-09] MEDS ORDERED: oxyCODONE/Acetamin 5/325 MG* TAB PO PRN (12:23)
[2019-08-09] MEDS: Ondansetron TAB* 4 MG PO PRN ×2 (12:45→21:08)
[2019-08-09 13:59] LABS: BUN/Creatinine Ratio 14.9 (8-20); Calcium 8.5 mg/dL (8.6-10.3); EGFR African American 115.9 (>60); EGFR Non-African American 95.8 (>60); Potassium 3.6 mmol/L (3.5-5.0)
[2019-08-09] MEDS ORDERED: Docusate CAP* 100 MG PO PRN (14:33)
--- NOTE | 2019-08-09 17:03 | PN ---
Subjective Date of Service: 08/09/19 Interval History: Patient complained of pain on the face as well as eyes, especially severe pain on eye movement. He didn't manage to sleep due to pain. Review onset of illness, Face and jaw pain for 1 week, rashes since Friday, starting with small dots on forehead, and spreading to other parts of face. Objective Active Medications: Acetaminophen (Tylenol Tab*) 650 mg PO Q4H PRN PRN Reason: PAIN - MILD Last Admin: 08/09/19 15:50 Dose: 650 mg Docusate Sodium (Colace Cap*) 100 mg PO DAILY PRN PRN Reason: CONSTIPATION Acyclovir Sodium 800 mg/ (Sodium Chloride) 116 mls @ 116 mls/hr IVPB Q8H [facility] Last Admin: 08/09/19 12:45 Dose: 116 mls/hr Cefazolin Sodium 2 gm/ Sodium (Chloride) 100 mls @ 200 mls/hr IVPB Q8H [facility] Last Admin: 08/09/19 14:05 Dose: 200 mls/hr Ondansetron HCl (Zofran Tab*) 4 mg PO Q6H PRN PRN Reason: NAUSEA/VOMITING Last Admin: 08/09/19 12:45 Dose: 4 mg Oxycodone/Acetaminophen (Percocet 5/325 Tab*) 1 tab PO Q6H PRN PRN Reason: PAIN - MODERATE Last Admin: 08/09/19 12:45 Dose: 1 tab Pantoprazole Sodium (Protonix Tab*) 40 mg PO DAILY [facility] Last Admin: 08/09/19 08:11 Dose: 40 mg Vital Signs - 8 hr 08/09/19 08/09/19 08/09/19 09:46 12:14 12:17 Temperature 98.2 F Pulse Rate 70 Respiratory 18 18 18 Rate Blood Pressure 152/77 (mmHg) O2 Sat by Pulse 100 Oximetry 08/09/19 08/09/19 08/09/19 12:45 15:43 16:13 Temperature 99.6 F Pulse Rate 70 Respiratory 18 18 18 Rate Blood Pressure 152/79 (mmHg) O2 Sat by Pulse 99 Oximetry Oxygen Devices in Use Now: None Exam: Patient sitting on a bed with no acute distress Skin: Background papular rashes in dermatome distribution (nose, forehead, left eye), crusted vesicles seen on forehead, papular rashes seen on neck, whole back , some on chest, not involving mouth, external ear canals. HEENT: left eye swollen, unable to open, conjunctivitis in left eye seen, vision impaired in left eye. No rashes on ear and external canal, tympanic membrane intact. Lungs: clear with no added sounds Heart: S1/S2, no murmur. Abdomen: soft, nondistended and nontender. Neuro: Alert. oriented x 3. Cranial nerve intact, EOMI but significant pain. No meningeal sign. Reflexes wnl. Result Diagrams: 08/09/19 04:20 08/09/19 13:24 Assess/Plan/Problems-Billing Assessment: Jn Mcmahon is a 44 yr man presented with 1 week duration of facial pain, and 3 days duration of face rashes in dermatome distribution , as well as left eye pain and swelling, concerning for herpes zoster opthalmicus. He doesn't have any systemic medical problems and not immunocompromised. - Patient Problems (1) Herpes zoster with ophthalmic complication Current Visit: Yes Status: Acute Code(s): B02.30 - ZOSTER OCULAR DISEASE, UNSPECIFIED SNOMED Code(s): 788307152 Comment: - his rashes on the face is typical of herpes zoster in terms of onset, distribution, appearance. His rash on his back is papular and generalized , this could be related to viremia, will watch that. - concerning for herpes zoster opthalmicus - awaiting opthalmology consult today - iv acyclovir for now - no signs of disseminated herpes zoster so far, no involvement of ear, or brain - pain control with percocet - HIV neg, will check A1c tomorrow to see any underlying systemic disease (2) GERD (gastroesophageal reflux disease) Current Visit: Yes Status: Acute Code(s): K21.9 - GASTRO-ESOPHAGEAL REFLUX DISEASE WITHOUT ESOPHAGITIS SNOMED Code(s): 290338998 Comment: - on protonix (3) DVT prophylaxis Current Visit: Yes Status: Acute Code(s): Z29.9 - ENCOUNTER FOR PROPHYLACTIC MEASURES, UNSPECIFIED SNOMED Code(s): 358588272 Comment: ambulatory Status and Disposition: Inpatient Attestation Documenting Resident: Haylie Van Supervising Physician: Collin Hewitt Attending/Supervising Physician Comment: Agree with plan as outlined in note from today by Dr. Van unless indicated here. 44 yo M 1 week pain followed by facial rash in dermatomal distribution. There are more diffuse lesions on back that started 3 d [employer] when he developed N/V and is suspected from transient viremia. Now on acyclovir andpending ophtho eval this evening which has been verbally confirmed. Attestation: This service has been performed in part by a resident under the direction of a teaching physician.I, Collin Hewitt, performed the service, or was physically present during the critical, or bee portions of the service, furnished by the resident. I participated in the management of the patient.
--- NOTE | 2019-08-09 18:31 | CONSULT ---
Consult Consult: OPHTHALMOLOGY CONSULT CC: FACIAL RASH HPI: 44 YO male, with no significant ophthalmic hx presents with 1 week of left facial pain and new onset rash. currently admitted for herpes zoster. Pt reports continued left facial pain, left eye lid swelling. He reports, when left eyelid held opn, his vision appear unaffected. Exam: VA: OD: 20/40 sc. Os 204/40 sc Pupils: ERRL, no apd left eye EOMS: full ou IOP: 27 OS external: vesicles in V1 distribution on the left with 4+ eyelid edema on left EOMS: full ou Conjunctiva: w/q od. scattered ALEKSEY os cornea: clear ou, no pseudodendrites os AC: d/q ou Iris: flat/intact ou Lens: clear ou Vit: clear ou Dilated os Trop/phen 6:02pm optic nerve: tilted, s/p pink, 0.5 os macula: flat os Vasc: wnl os Periphery: flat os, no retinopathy A/P 1: Herpes zoster ophthalmicus, left sided -with elevated eye pressure. May be due to degree of swelling rather than trabeculitis but cannot differentiate now. -no keratopathy or retinopathy -rec continue acylovir IV until able to tolerate oral medication -rec starting Timolol 0.5% eye drops, twice a day to the left eye -rec starting prednisolone 1% eye drops , three times a day to the left eye -continue drops until able to be seen as an out patient. Rec follow up in clinic 1-3 days after discharge -follow up at [facility], [address], [place], [address]. Ph: [phone] Dinesh Borden MD
[2019-08-09] MEDS ORDERED: Acyclovir IV(*) 800 MG in NS 0.9% 250 ML* 250 ML IVPB SCH (18:42)
[2019-08-09] MEDS ORDERED: NS 0.9% 100 ML* 100 ML ONE (20:29)
[2019-08-09] MEDS: Acyclovir IV(*) 800 MG in NS 0.9% 250 ML* 250 ML IVPB SCH (20:40)
[2019-08-09] MEDS: oxyCODONE/Acetamin 5/325 MG* TAB PO PRN (21:08)
[2019-08-09] MEDS: diPHENhydraMINE PO* 25 MG PO PRN (22:17)
[2019-08-10] MEDS: Acyclovir IV(*) 800 MG in NS 0.9% 250 ML* 250 ML IVPB SCH ×3 (04:28→21:14)
[2019-08-10] MEDS: ceFAZolin VIAL(*) 2 GM in NS 0.9% 100 ML* 100 ML IVPB SCH ×2 (05:38→16:07)
[2019-08-10 06:29] LABS: INR 1.11 (0.82-1.09)
[2019-08-10 06:46] LABS: BUN/Creatinine Ratio 11.8 (8-20); Calcium 8.8 mg/dL (8.6-10.3); EGFR African American 107.3 (>60); EGFR Non-African American 88.7 (>60); Potassium 3.7 mmol/L (3.5-5.0)
[2019-08-10] MEDS: Pantoprazole TAB * 40 MG TAB PO SCH (09:32)
[2019-08-10] MEDS: oxyCODONE/Acetamin 5/325 MG* TAB PO PRN ×2 (09:33→20:42)
[2019-08-10] MEDS: prednisoLONE 1% OPHTH.SUSP* 5 ML OPHTH.SUSP LEFT EYE SCH ×4 (09:34→21:16)
[2019-08-10] MEDS: Timolol 0.5% OPTH.SOL* BTL LEFT EYE SCH ×2 (09:35→21:18)
[2019-08-10 16:15] LABS: ABS Basophils 0.1 10^3/ul (0-0.2); ABS Lymphocytes 1.4 10^3/ul (1.0-4.8); ABS Monocytes 1.2 10^3/ul (0-0.8); ABS Neutrophils 6.3 10^3/ul (1.5-7.7); Eosinophil % 0.3 %; Hematocrit 44 % (42-52); Hemoglobin 15.2 g/dL (14.0-18.0); Lymphocyte % 15.5 %; Mean Corpuscular HGB Conc 35 g/dL (31-36); Mean Corpuscular Hemoglobin 32 pg (27-31); Mean Corpuscular Volume 93 fL (80-94); Mean Platelet Volume 8.5 fL (7.4-10.4); Nucleated Red Blood Cells % 0.1; Platelet Count 182 10^3/uL (150-450); Red Blood Count 4.72 10^6 /uL (4.18-5.48); Red Cell Distribution Width 13 % (10-15)
[2019-08-10] MEDS ORDERED: Melatonin 3 MG TAB PO PRN (17:48)
--- NOTE | 2019-08-10 17:53 | PN ---
Subjective Date of Service: 08/10/19 Interval History: Patient complained that he didn't manage to sleep for days despite the pain getting controlled. He noticed his left eye is better, less swollen, and he was able to open it a bit. His vision is improving but blurred due to tear. His rashes on the trunk increasing in his chest and abdominal area, and spreading to his thighs, mild pruritic, but able to tolerate. Objective Active Medications: Acetaminophen (Tylenol Tab*) 650 mg PO Q4H PRN PRN Reason: PAIN - MILD Last Admin: 08/09/19 15:50 Dose: 650 mg Diphenhydramine HCl (Benadryl Po*) 25 mg PO BEDTIME PRN PRN Reason: SLEEP Last Admin: 08/09/19 22:17 Dose: 25 mg Docusate Sodium (Colace Cap*) 100 mg PO DAILY PRN PRN Reason: CONSTIPATION Cefazolin Sodium 2 gm/ Sodium (Chloride) 100 mls @ 200 mls/hr IVPB Q8H [facility] Last Admin: 08/10/19 16:07 Dose: 200 mls/hr Acyclovir Sodium 800 mg/ (Sodium Chloride) 266 mls @ 266 mls/hr IVPB Q8HR@0500, 1300,2100 [facility] Last Admin: 08/10/19 14:34 Dose: 266 mls/hr Ondansetron HCl (Zofran Tab*) 4 mg PO Q6H PRN PRN Reason: NAUSEA/VOMITING Last Admin: 08/09/19 21:08 Dose: 4 mg Oxycodone/Acetaminophen (Percocet 5/325 Tab*) 2 tab PO Q6H PRN PRN Reason: PAIN - MODERATE Last Admin: 08/10/19 09:33 Dose: 2 tab Pantoprazole Sodium (Protonix Tab*) 40 mg PO DAILY [facility] Last Admin: 08/10/19 09:32 Dose: 40 mg Prednisolone Acetate (Pred Forte 1%*) 2 drop LEFT EYE QID [facility] Last Admin: 08/10/19 14:34 Dose: 2 drop Timolol Maleate (Timoptic 0.5% Opth*) 1 drop LEFT EYE BID [facility] Last Admin: 08/10/19 09:35 Dose: 1 drop Vital Signs - 8 hr 08/10/19 08/10/19 12:00 12:51 Temperature 98.4 F Pulse Rate 77 Respiratory 18 16 Rate Blood Pressure 151/85 (mmHg) O2 Sat by Pulse 97 Oximetry Oxygen Devices in Use Now: None Exam: Patient sitting on a bed with no acute distress Skin: papular rashes in dermatome distribution (nose, forehead, left eye), crusted vesicles seen on forehead (more than yesterday), papular rashes seen on neck, whole back, chest and abdominal area (no drainage seen, pruritic), not involving mouth, external ear canals. HEENT: left eye less swollen, conjunctivitis in left eye seen, vision impaired in left eye. No rashes on ear and external canal, tympanic membrane intact. Lungs: clear with no added sounds Heart: S1/S2, no murmur. Abdomen: soft, nondistended and nontender. Neuro: Alert. oriented x 3. Cranial nerve intact, EOMI but significant pain. No meningeal sign. Reflexes wnl. Result Diagrams: 08/10/19 06:20 08/10/19 06:08 Assess/Plan/Problems-Billing Assessment: Jn Mcmahon is a 44 yr man presented with 1 week duration of facial pain, and 3 days duration of face rashes in dermatome distribution , as well as left eye pain and swelling, concerning for herpes zoster opthalmicus. He doesn't have any systemic medical problems and not immunocompromised. - Patient Problems (1) Herpes zoster with ophthalmic complication Current Visit: Yes Status: Acute Code(s): B02.30 - ZOSTER OCULAR DISEASE, UNSPECIFIED SNOMED Code(s): 812170202 Comment: - his rashes on the face is typical of herpes zoster in terms of onset, distribution, appearance. His rash on his back is papular and generalized , this could be related to viral exanthem, will watch that. - appreciate opthalmology rec, no eye involvement, eye symptoms more due to swelling. oral antiviral will be sufficient from eye standpoint. - continue iv acyclovir for now, if continues to get better, consider converting to oral - no signs of disseminated herpes zoster so far, no involvement of ear, or brain - pain control with percocet - hiv neg, a1c normal (2) Elevated BP without diagnosis of hypertension Current Visit: Yes Status: Acute Code(s): R03.0 - ELEVATED BLOOD-PRESSURE READING, W/O DIAGNOSIS OF HTN SNOMED Code(s): 949220701 Comment: - BP elevated at 140-160/70-80mmhg during hospitalization - could related to acute illness/sleep deprivation - will need to reevaluate when he gets out of acute illness - he may have underlying hypertension, need outpt followup (3) GERD (gastroesophageal reflux disease) Current Visit: Yes Status: Acute Code(s): K21.9 - GASTRO-ESOPHAGEAL REFLUX DISEASE WITHOUT ESOPHAGITIS SNOMED Code(s): 195299382 Comment: - on protonix (4) DVT prophylaxis Current Visit: Yes Status: Acute Code(s): Z29.9 - ENCOUNTER FOR PROPHYLACTIC MEASURES, UNSPECIFIED SNOMED Code(s): 309876122 Comment: ambulatory Status and Disposition: Inpatient Attestation Documenting Resident: Haylie Van Supervising Physician: Collin Hewitt Attending/Supervising Physician Comment: Agree with plan as outlined here by Dr. Van unless indicated. Acyclovir IV for herpes zoster ophthalmicu now improving. Plan to convert to oral if continues to improve tomorrow. Steroid eye drops. Stopped antibiotics Attestation: This service has been performed in part by a resident under the direction of a teaching physician.I, Collin Hewitt, performed the service, or was physically present during the critical, or bee portions of the service, furnished by the resident. I participated in the management of the patient.
[2019-08-10] MEDS ORDERED: Polyethylene Glycol 3350* 17 GM PACKET PO PRN (18:50)
[2019-08-10] MEDS: diPHENhydraMINE PO* 25 MG PO PRN (21:15)
[2019-08-11] MEDS: Acyclovir IV(*) 800 MG in NS 0.9% 250 ML* 250 ML IVPB SCH ×3 (05:11→21:03)
[2019-08-11] MEDS: Pantoprazole TAB * 40 MG TAB PO SCH (09:44)
[2019-08-11] MEDS: prednisoLONE 1% OPHTH.SUSP* 5 ML OPHTH.SUSP LEFT EYE SCH ×4 (10:03→21:02)
[2019-08-11] MEDS: Timolol 0.5% OPTH.SOL* BTL LEFT EYE SCH ×2 (10:03→21:03)
[2019-08-11] MEDS: oxyCODONE/Acetamin 5/325 MG* TAB PO PRN ×2 (10:26→23:23)
--- NOTE | 2019-08-11 14:48 | PN ---
Subjective Date of Service: 08/11/19 Interval History: Patient felt better in general, left side vision better, able to tolerate food, good appetite. However rashes were noted to spread to right side of face with eyelid swelling, vision not affected. Left side rashes spreading to his scalp. His rashes on his chest and back is also increasing, but slight change in nature of rash, more macules in background while palpules are increasing. No SOB, no swollowing difficulty, no lip swelling. Objective Active Medications: Acetaminophen (Tylenol Tab*) 650 mg PO Q4H PRN PRN Reason: PAIN - MILD Last Admin: 08/09/19 15:50 Dose: 650 mg Diphenhydramine HCl (Benadryl Po*) 25 mg PO BEDTIME PRN PRN Reason: SLEEP Last Admin: 08/10/19 21:15 Dose: 25 mg Docusate Sodium (Colace Cap*) 100 mg PO DAILY PRN PRN Reason: CONSTIPATION Acyclovir Sodium 800 mg/ (Sodium Chloride) 266 mls @ 266 mls/hr IVPB Q8HR@0500, 1300,2100 [facility] Last Admin: 08/11/19 13:28 Dose: Not Given Melatonin (Melatonin) 3 mg PO BEDTIME PRN PRN Reason: SLEEP Last Admin: 08/10/19 21:15 Dose: 3 mg Ondansetron HCl (Zofran Tab*) 4 mg PO Q6H PRN PRN Reason: NAUSEA/VOMITING Last Admin: 08/09/19 21:08 Dose: 4 mg Oxycodone/Acetaminophen (Percocet 5/325 Tab*) 2 tab PO Q6H PRN PRN Reason: PAIN - MODERATE Last Admin: 08/11/19 10:26 Dose: 2 tab Pantoprazole Sodium (Protonix Tab*) 40 mg PO DAILY [facility] Last Admin: 08/11/19 09:44 Dose: 40 mg Polyethylene Glycol/Electrolytes (Miralax (17 Gm Dose Srinivas)) 17 gm PO DAILY PRN PRN Reason: CONSTIPATION Prednisolone Acetate (Pred Forte 1%*) 2 drop LEFT EYE QID [facility] Last Admin: 08/11/19 10:03 Dose: 2 drop Timolol Maleate (Timoptic 0.5% Opth*) 1 drop LEFT EYE BID [facility] Last Admin: 08/11/19 10:03 Dose: 1 drop Vital Signs - 8 hr 08/11/19 08/11/19 08/11/19 08:00 08:06 10:26 Temperature 98.3 F Pulse Rate 90 Respiratory 18 18 18 Rate Blood Pressure 115/88 (mmHg) O2 Sat by Pulse 99 Oximetry 08/11/19 08/11/19 12:00 13:41 Temperature 97.6 F Pulse Rate 81 Respiratory 20 18 Rate Blood Pressure 138/97 (mmHg) O2 Sat by Pulse 98 Oximetry Oxygen Devices in Use Now: None Exam: Patient sitting on a bed with no acute distress Skin: left face papular rashes in dermatome distribution (nose, forehead, left eye, extending to scalp), crusted vesicles seen on forehead (more than yesterday ). Right eyelid swelling seen, some papular rashes similar to his left side ones in right face. Papular rashes seen on neck, whole back, chest and abdominal area (no drainage seen), with left ear papules seen as well, background macular rashes in trunk and neck which is new. HEENT: left eye less swollen, conjunctivitis in left eye seen, vision impaired in left eye, vision wnl in right ear. left ear pustular papules seen, tympanic membrane intact. Lungs: clear with no added sounds Heart: S1/S2, no murmur. Abdomen: soft, nondistended and nontender. Neuro: Alert. oriented x 3. Cranial nerve intact, EOMI but significant pain. No meningeal sign. Reflexes wnl. Result Diagrams: 08/10/19 06:20 08/10/19 06:08 Assess/Plan/Problems-Billing Assessment: Jn Mcmahon is a 44 yr man presented with 1 week duration of facial pain, and 3 days duration of face rashes in dermatome distribution , as well as left eye pain and swelling, thought to be herpes zoster opthalmicus. He doesn't have any systemic medical problems and not immunocompromised. - Patient Problems (1) Herpes zoster with ophthalmic complication Current Visit: Yes Status: Acute Code(s): B02.30 - ZOSTER OCULAR DISEASE, UNSPECIFIED SNOMED Code(s): 039478515 Comment: - his rashes on the face is typical of herpes zoster in terms of onset, distribution, appearance. His rash on his back is maculopapular and generalized, this could be related to viral exanthem, allergic reaction to antiviral or antibiotic, or disseminated herpes zoster, which is less likely. - appreciate opthalmology rec, no eye involvement, eye symptoms more due to swelling. oral antiviral will be sufficient from eye standpoint. - will continue iv acyclovir for now(after discussing with ID) - pain control with percocet - hiv neg, a1c normal (2) Elevated BP without diagnosis of hypertension Current Visit: Yes Status: Acute Code(s): R03.0 - ELEVATED BLOOD-PRESSURE READING, W/O DIAGNOSIS OF HTN SNOMED Code(s): 636838071 Comment: - BP elevated at 140-160/70-80mmhg during hospitalization - could related to acute illness/sleep deprivation - will need to reevaluate when he gets out of acute illness - he may have underlying hypertension, need outpt followup (3) GERD (gastroesophageal reflux disease) Current Visit: Yes Status: Acute Code(s): K21.9 - GASTRO-ESOPHAGEAL REFLUX DISEASE WITHOUT ESOPHAGITIS SNOMED Code(s): 328350886 Comment: - on protonix (4) DVT prophylaxis Current Visit: Yes Status: Acute Code(s): Z29.9 - ENCOUNTER FOR PROPHYLACTIC MEASURES, UNSPECIFIED SNOMED Code(s): 557700547 Comment: ambulatory Status and Disposition: Inpatient Attestation Documenting Resident: Haylie Van Supervising Physician: Collin Hewitt Attending/Supervising Physician Comment: Agree with plan as outlined in Dr. Van's note from today unless indicated. Zoster ophthalmicus improving. He is developing pain on flash contralateral side which we will keep a close watch on Pityriasis Folliculitis Attestation: This service has been performed in part by a resident under the direction of a teaching physician.I, Collin Hewitt, performed the service, or was physically present during the critical, or bee portions of the service, furnished by the resident. I participated in the management of the patient.
[2019-08-11] MEDS ORDERED: Clindamycin 1% TOPICAL(NF) TOPICAL SCH (21:00)
[2019-08-11] MEDS ORDERED: Mupirocin 2% OINT* TUBE TOPICAL SCH (21:00)
[2019-08-11] MEDS: Mupirocin 2% OINT* TUBE TOPICAL SCH (21:45)
[2019-08-12] MEDS: Acyclovir IV(*) 800 MG in NS 0.9% 250 ML* 250 ML IVPB SCH ×2 (04:51→13:48)
[2019-08-12] MEDS ORDERED: CMCS: Ketoconazole 2 % CREAM (NF) 30 GM TUBE TOPICAL SCH (09:00)
[2019-08-12] MEDS: prednisoLONE 1% OPHTH.SUSP* 5 ML OPHTH.SUSP LEFT EYE SCH ×2 (09:47→13:51)
[2019-08-12] MEDS: Mupirocin 2% OINT* TUBE TOPICAL SCH ×2 (09:48→13:51)
[2019-08-12] MEDS: Timolol 0.5% OPTH.SOL* BTL LEFT EYE SCH (09:49)
[2019-08-12] MEDS: Pantoprazole TAB * 40 MG TAB PO SCH (09:55)
--- NOTE | 2019-08-12 11:46 | CONS ---
CONSULTATION REPORT: DATE OF CONSULT: 08/12/19 REQUESTING PHYSICIAN: Dr. Van. CONSULTING SERVICE: Infectious Disease. REASON FOR CONSULT: Herpes zoster ophthalmicus. IMPRESSION: 1. Herpes zoster ophthalmicus, left V1 distribution, overall improving with antivirals and topical corticosteroids. He has some scattered eschar on his chest that were reportedly pustules initially. The differential includes disseminated zoster, folliculitis, pustular reaction to his recent Augmentin or cefazolin therapy. In any event, they are all crusted over. 2. Obesity. 3. Gastroesophageal reflux disease. RECOMMENDATIONS: Agree with acyclovir and topical treatments. The IV advantage is mild and likely by tomorrow we would be able to switch him to oral treatment to complete 10 days of therapy. HISTORY OF PRESENT ILLNESS: This is a 44-year-old male who had some vomiting followed by pain, swelling on the left forehead and then blurred vision, irritation in the left eye. He was treated with Augmentin as an outpatient after an ER visit, was not having much improvement, came back to the ER a couple of times; and then on 08/09/19, it was by then apparently obvious that it was a zoster infection, was started on acyclovir and Ancef. Around that time , he had developed some pustular rash on his chest and back as well. It was not itchy or painful and he was started on Ancef as well as acyclovir here. An HIV test was negative. He was started on corticosteroids yesterday. He has had significant improvement in the left eye pain and swelling overnight. His energy is good. Appetite is fine. All the lesions on his chest and back are crusted. He is not noticing new ones. PAST MEDICAL HISTORY: 1. Gastroesophageal reflux disease. 2. Obesity. PAST SURGICAL HISTORY: Status post hernia repair. ALLERGIES: No known drug allergies. MEDICATIONS: 1. Tylenol. 2. Acyclovir 800 mg IV every 8 hours. 3. Melatonin at bedtime. 4. Oxycodone as needed. 5. Pantoprazole daily. 6. Prednisolone and timolol, left eye. SOCIAL HISTORY: He lives in [place]. He is a nonsmoker. Lives with his . FAMILY HISTORY: Mother had a stroke. Father is alive and healthy. REVIEW OF SYSTEMS: All negative except as noted above to a 12-point review. PHYSICAL EXAM: Vital Signs: Temperature 37, heart rate 80, respiratory rate 20 , blood pressure 148/83, oxygen saturation 99% on room air. In general, he is awake, not in distress. Neurologic: He is oriented x3. Follows commands. HEENT: There is a left eye scleral injection. Heart is regular rate and rhythm without murmurs, rubs, or gallops. Lungs are clear to auscultation bilaterally. Abdomen: Soft, nontender, nondistended. There are bowel sounds present. Skin: Left forehead and lateral nose, there are some pustules and confluent eschar with slight surrounding erythema. Diffuse edema of the upper and lower eyelids. Chest and back, there are scattered crusted lesions that are 1 to 2 mm eschar without surrounding erythema. LABORATORY DATA: White blood cell count 9, hemoglobin 15, platelets 182. Creatinine 0.9. HIV antibody negative. Please see impression and recommendations outlined above. Thanks for asking me to see Mr. Mcmahon in consultation. [id number]/[facility] #: [id number] [facility]
[2019-08-12 14:43] VITALS: BP 150/90
--- NOTE | 2019-08-12 20:53 | DS ---
CC: Dr. Mcgovern; Dr. Jn Borden, Dr. Gonzalez; Dr. Thakur; Dr. Lilian Britton * DISCHARGE SUMMARY: DATE OF ADMISSION: 08/09/19 DATE OF DISCHARGE: 08/12/19 PRIMARY CARE PHYSICIAN: Dr. Mcgovern. OPHTHALMOLOGISTS: Dr. Jn Borden, Dr. Gonzalez. [employer] FITTER: Dr. Lilian Britton. DISPOSITION ON DISCHARGE: Home. CONDITION AT DISCHARGE: Good. PRIMARY DIAGNOSIS: Herpes zoster ophthalmicus. SECONDARY DIAGNOSES: Include folliculitis and tinea versicolor. HISTORY OF PRESENT ILLNESS AND HOSPITAL COURSE: This is a 44-year-old man with limited past medical history including GERD, who was in his usual state of health, presented to the hospital after several encounters in the emergency room with eruption of rash in the distribution of the trigeminal nerve on the left side following usual course consistent with herpes zoster ophthalmicus. He was seen in conjunction with Infectious Disease as well as Dermatology as well as Ophthalmology services. Dr. Borden indicated he had elevated eye pressures in the setting of eye swelling but not trabeculitis. There was no keratopathy or retinopathy. The patient was treated with IV acyclovir and started on timolol as well as prednisolone eye drops. He improved dramatically. He was noted to have other rashes inconsistent in their distribution with zoster, for which additional consultation with Dermatology was sought. He was thought to have both tinea versicolor as well as generalized folliculitis on his trunk and his back as well as his contralateral side of his face, which was his right. He will be discharged with benzoyl peroxide, ketoconazole as well as mupirocin ointment for possible underlying mild superficial skin infection associated with zoster in addition to acyclovir in order to complete a total of 10 days of antivirals. At the time of discharge , he was greatly improved. His conjunctivitis as well as surrounding swelling was largely improved. His vision had returned to normal. His pain which was predominant on presentation was almost entirely resolved. Followup appointment with Ophthalmology was made. The patient should also follow with his primary care physician and he intends to follow with Dr. Britton as well. [id number]/[facility] #: [id number] [facility]
== END 2019-08-12 16:40 | disposition home or self-care (01) | DRG 80 ==
LOC: ED 03:49 → MED 05:12 → OBSVTOIN 16:15
PROVIDERS: ADMIT Nurse Practitioner Family; ATTEND Internal Medicine
DX: B02.30 Zoster ocular disease, unspecified (principal); E66.9 Obesity, unspecified; K21.9 Gastro-esophageal reflux disease without esophagitis; B36.0 Pityriasis versicolor; L73.9 Follicular disorder, unspecified; L01.00 Impetigo, unspecified; L70.9 Acne, unspecified; R03.0 Elevated blood-pressure reading, without diagnosis of hypertension; H10.9 Unspecified conjunctivitis; Z68.34 Body mass index [BMI] 34.0-34.9, adult; Z28.21 Immunization not carried out because of patient refusal
CPT/HCPCS: 36415; 80048; 80053; 83036; 85025; 85610; 87389; 96361; 96374; 99284; A9270-GY; J0133; J0690; J2405